=== PATIENT | female | born 1965 | race Caucasian/White ===

== ENCOUNTER 2018-02-08 07:34 | Inpatient (IN) | payer OTHER ==
[2018-02-05 07:55] LABS: BASOPHILS % 0.4 % (0.0-1.0); EOSINOPHILS # (AUTO) 0.1 (0.0-0.4); EOSINOPHILS % 1.7 % (0.0-6.0); HEMATOCRIT 42.5 % (34.2-44.1); HEMOGLOBIN 14.7 g/dL (12.0-16.0); LYMPHOCYTES # (AUTO) 2.6 (1.0-3.2); LYMPHOCYTES % 34.7 % (18.0-39.1); MEAN CORPUSCULAR HEMOGLOBIN 31.5 pg (28-32); MEAN CORPUSCULAR HGB CONC 34.6 g/dL (31-35); MEAN CORPUSCULAR VOLUME 91.2 fL (81-99); MONOCYTES # (AUTO) 0.5 (0.2-0.8); MONOCYTES % 7.3 % (4.4-11.3); NEUTROPHILS # (AUTO) 4.1 (2.1-6.9); NEUTROPHILS % 55.6 % (38.7-80.0); PLATELET COUNT 279 x10e3/uL (140-360); RED BLOOD COUNT 4.66 x10e6/uL (3.6-5.1); RED CELL DISTRIBUTION WIDTH 12.9 % (11.7-14.4)
[2018-02-05 08:45] LABS: ALANINE AMINOTRANSFERASE 32 IU/L (0-55); ALKALINE PHOSPHATASE 100 IU/L (40-150); ANION GAP 15.5 mmol/L (8-16); BLOOD UREA NITROGEN 18 mg/dL (7-26); BUN/CREATININE RATIO 21 (6-25); CALCIUM 10.1 mg/dL (8.4-10.2); CARBON DIOXIDE 25 mmol/L (22-29); CHLORIDE 104 mmol/L (98-107); CREATININE, SERUM 0.86 mg/dL (0.57-1.11); EST GLOMERULAR FILTRATION RATE > 60 ML/MIN (60-); GLUCOSE 110 mg/dL (74-118); POTASSIUM 4.5 mmol/L (3.5-5.1); SODIUM 140 mmol/L (136-145)
[~2018-02-08] VITALS: Ht 177.8 cm; Wt 107.0 kg
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
[2018-02-08] MEDS ORDERED: LIDOCAINE HCL (LTA) 4 ML SOLN ONE (09:40)
[2018-02-08] MEDS ORDERED: FENTANYL CITRATE/PF 100MCG/2 ML INJ ONE (10:02)
[2018-02-08] MEDS ORDERED: MIDAZOLAM HCL 2 MG/2 ML VIAL ONE (10:02)
[2018-02-08] MEDS ORDERED: SCOPOLAMINE 1.5 MG PATCH ONE (10:02)
[2018-02-08] MEDS ORDERED: FAMOTIDINE 20 MG/2 ML VIAL IV ONE (10:03)
[2018-02-08] MEDS ORDERED: BUPIVACAINE 0.25% 30ML SDV INJ ONE (10:06)
[2018-02-08] MEDS ORDERED: CEFAZOLIN SOD 2 GM/D5W 50ML 50 ML IV ONE (10:07)
[2018-02-08] MEDS ORDERED: SUGAMMADEX SODIUM 200 MG/2 ML VIAL IV ONE (11:28)
[2018-02-08] MEDS ORDERED: MORPHINE SULFATE 2 MG/ML SYR IV PRN (11:45)
[2018-02-08] MEDS ORDERED: ONDANSETRON HCL INJ 2 MG/ML VIAL IV PRN (11:45)
[2018-02-08] MEDS ORDERED: METOCLOPRAMIDE HCL 10 MG/2ML VIAL ONE (12:04)
[2018-02-08] MEDS ORDERED: ONDANSETRON HCL INJ 2 MG/ML VIAL ONE ×2 (12:04→16:50)
[2018-02-08] MEDS ORDERED: SCOPOLAMINE 1.5 MG PATCH TOP SCH (14:00)
--- NOTE | 2018-02-08 15:11 | Consultation ---
DATE OF CONSULTATION: February 08, 2018 INTERNAL MEDICINE CONSULTATION REASON FOR CONSULTATION: Medical management. HISTORY OF PRESENT ILLNESS: This is a 52-year-old white woman who underwent elective laparoscopic sleeve gastrectomy today, on February 08, 2018. This woman has a history of obesity with a body mass index of 35 as well as underlying sleep apnea. Patient states that she does not use a CPAP machine at night. Patient voices no complaints. Patient tolerated the surgery quite well. REVIEW OF SYSTEMS GENERAL: Patient has lost 10 to 15 pounds over the last month intentionally. No fever or chills. HEENT: No headaches. No visual changes. CARDIOVASCULAR/RESPIRATORY: No chest pain, no shortness of breath, no cough. GI: No nausea, vomiting, diarrhea or constipation. : No overactive bladder or UTI symptoms. NEUROMUSCULAR: Denies any limb weakness or numbness. PAST MEDICAL HISTORY 1. Mitral valve prolapse diagnosed at age 22. 2. Obstructive sleep apnea. 3. Obesity with BMI of 35. SURGICAL HISTORY: Total abdominal hysterectomy with bilateral salpingo-oophorectomy in 2007. FAMILY HISTORY: Noncontributory. SOCIAL HISTORY: This woman is . She lives with her . She is self-employed, and she raises and breeds large canines. She drinks alcohol socially. No tobacco use. ALLERGIES: SHE HAS NO KNOWN DRUG ALLERGIES. MEDICATIONS: None. PHYSICAL EXAMINATION GENERAL: She is awake, alert and fully oriented. Very pleasant and cooperative with exam. VITAL SIGNS: Blood pressure is 122/84, pulse of 82 and is regular, oxygen saturation 98% on room air, temperature 98.0, respiratory rate is 16. Height is 5 feet 10-1/2 inches. Weight is 250 pounds. BMI is 35. INTEGUMENT: Skin is warm and dry. No pallor, jaundice, diaphoresis. HEENT: Anicteric sclerae with moist mucous membranes. NECK: Supple. CARDIOVASCULAR: Regular rate and rhythm. LUNGS: No rales, no rhonchi, no wheezes. ABDOMEN: Benign. No bowel sounds are appreciated at this time. Laparoscopic incisions are currently dressed. EXTREMITIES: No edema or deformity. The patient has sequential compression devices in place. NEUROLOGICALLY: Intact. DIAGNOSES 1. Status post laparoscopic sleeve gastrectomy. 2. Obesity with body mass index of 35. 3. Obstructive sleep apnea. 4. Mitral valve prolapse. PLAN 1. Will follow hemoglobin and hematocrit as well as electrolytes. 2. Will follow renal function. 3. Encourage incentive spirometry usage to prevent atelectasis. 4. Mobilize the patient. 5. Will start enoxaparin tonight for deep venous thrombosis prophylaxis. 6. Continue sequential compression devices. 7. Pain control. I spent 40 minutes in the care of this patient. I would like to thank Dr. Doll for this generous consult. Job#: [id number] EV
--- NOTE | 2018-02-08 15:37 | Operative Report ---
DATE OF PROCEDURE: February 08, 2018 PREOPERATIVE DIAGNOSES 1. Morbid obesity, body mass index of 35. 2. Diabetes mellitus. POSTOPERATIVE DIAGNOSES 1. Morbid obesity, body mass index of 35. 2. Diabetes mellitus. PREOPERATIVE INDICATIONS: Treat disease, prevent complications related to comorbid conditions of obesity. PROCEDURE: Laparoscopic vertical sleeve gastrectomy. ANESTHESIA: General. FIELD SERVICE TECH: Kai Hernandez, surgical retail loan originator assistant (mainly due to complexity of case). FLUIDS: 1400 cc crystalloid. EBL: 25 mL. DRAINS: None. COMPLICATIONS: None. SPECIMENS: Partial stomach (opened at the back table, not sent to pathology). GRAFTS: None. FINDINGS 1. Normal upper GI anatomy. 2. Negative intraoperative EGD leak test. PROCEDURAL DETAILS: The patient was brought to the operating room and was intubated under general endotracheal anesthesia. She was positioned supine with both arms abducted, and all pressure points appropriately padded. She was sterilely prepped and draped in the usual fashion. A preprocedure pause was performed identifying the patient and received preoperative antibiotics, intended procedure, and the staff surgeon. A primary 5 mm left subcostal incision was made, and a Veress needle was inserted and insufflated the abdomen to a pressure of 15 mmHg of pressure. A 0-degree, 5-mm Optiview trocar was placed under direct visualization. No injuries were noted. Four additional trocars were placed in the standard position. A liver retractor was placed to expose the stomach and the hiatus. I then mobilized the greater curvature of the stomach by ligating the gastroepiploica, short gastric and posterior short gastric vessels all up to the left crux of the diaphragm and distally to about 4 cm proximal to the pyloric valve. Once this was complete, an adult size endoscope was placed along the lesser curvature of the stomach to be used as a bougie. I formulated our gastric sleeve by resecting the greater curvature of the stomach along the length of the bougie by using first 2 green load staplers, Ethicon, with seam guard, and then 3 blue loads with seam guard at the proximal stomach. The staple line was hemostatic. Hemoclips were applied where necessary. I conducted an intraoperative EGD leak test, and no leaks were identified. The resected portion of the stomach was removed through the right periumbilical port site. I closed the port site with 0 Vicryl sutures using the Heath-Za technique. Hemostasis was again verified. The liver retractor was removed. We then desufflated the abdomen and removed the trocars. We closed the incision site with 4-0 Monocryl suture in a subcuticular fashion, and applied 0.25% bupivacaine about the preperitoneal incision sites. The patient tolerated the procedure well. TYPE OF WOUND: Type 2, clean and contaminated. All surgical sponge and instrument counts were correct. Job#: [id number] AR
[2018-02-08] MEDS ORDERED: DEXAMETHASONE SOD PHOS INJ 4 MG/ML VIAL ONE (16:50)
[2018-02-08] MEDS ORDERED: ACETAMINOPHEN 1000 MG/100 ML IV ONE (16:50)
[2018-02-08] MEDS ORDERED: ROCURONIUM BROMIDE 10 MG/ML 5ML VIAL ONE (16:50)
[2018-02-08] MEDS ORDERED: SEVOFLURANE INHAL SOLN 250 ML PEN BTL ONE (16:50)
[2018-02-08] MEDS ORDERED: PROPOFOL IV EMULSION 10 MG/ML 20 ML VIAL ONE (16:50)
[2018-02-08] MEDS ORDERED: LIDOCAINE HCL 2% LOCAL INJ 5 ML SDV VIAL INJ ONE (16:50)
[2018-02-08 17:30] VITALS: BP 105/77
[2018-02-08 17:33] VITALS: BP 106/68
[2018-02-08] MEDS: SODIUM CHLORIDE 0.9% 1000ML 1,000 ML IV SCH ×2 (17:39→20:29)
[2018-02-08 20:00] VITALS: BP 105/67
[2018-02-08] MEDS: ENOXAPARIN SOD INJ 40 MG/0.4 ML SYR SC SCH (20:02)
[2018-02-08] MEDS: ACETAMINOPHEN 1000 MG/100 ML IV PRN (20:29)
[2018-02-09] VITALS: BP 100/62
[2018-02-09 04:00] VITALS: BP 109/57
[2018-02-09] MEDS: SODIUM CHLORIDE 0.9% 1000ML 1,000 ML IV SCH ×2 (04:53→11:31)
[2018-02-09] MEDS: ACETAMINOPHEN 1000 MG/100 ML IV PRN (05:02)
[2018-02-09 05:46] LABS: BASOPHILS % 0.2 % (0.0-1.0); EOSINOPHILS % 0.1 % (0.0-6.0); HEMATOCRIT 36.3 % (34.2-44.1); HEMOGLOBIN 12.5 g/dL (12.0-16.0); LYMPHOCYTES # (AUTO) 2.8 (1.0-3.2); MEAN CORPUSCULAR HEMOGLOBIN 31.2 pg (28-32); MEAN CORPUSCULAR HGB CONC 34.4 g/dL (31-35); MEAN CORPUSCULAR VOLUME 90.5 fL (81-99); MONOCYTES # (AUTO) 0.6 (0.2-0.8); MONOCYTES % 5.5 % (4.4-11.3); NEUTROPHILS # (AUTO) 8.1 (2.1-6.9); NEUTROPHILS % 69.8 % (38.7-80.0); PLATELET COUNT 227 x10e3/uL (140-360); RED BLOOD COUNT 4.01 x10e6/uL (3.6-5.1); RED CELL DISTRIBUTION WIDTH 12.9 % (11.7-14.4)
[2018-02-09 06:16] LABS: ALANINE AMINOTRANSFERASE 25 IU/L (0-55); ALBUMIN 3.1 g/dL (3.5-5.0); ALBUMIN/GLOBULIN RATIO 1.2 (0.8-2.0); ALKALINE PHOSPHATASE 86 IU/L (40-150); ANION GAP 12.8 mmol/L (8-16); BLOOD UREA NITROGEN 9 mg/dL (7-26); BUN/CREATININE RATIO 13 (6-25); CALCIUM 7.9 mg/dL (8.4-10.2); CARBON DIOXIDE 20 mmol/L (22-29); CHLORIDE 107 mmol/L (98-107); CREATININE, SERUM 0.69 mg/dL (0.57-1.11); EST GLOMERULAR FILTRATION RATE > 60 ML/MIN (60-); GLUCOSE 87 mg/dL (74-118); MAGNESIUM 1.7 MG/DL (1.3-2.1); PHOSPHORUS 2.7 MG/DL (2.3-4.7); POTASSIUM 3.8 mmol/L (3.5-5.1); SODIUM 136 mmol/L (136-145)
[2018-02-09] MEDS ORDERED: HYDROCODONE/APAP 7.5MG-325MG 1 EA TAB PO PRN (07:00)
[2018-02-09 08:00] VITALS: BP 97/64
[2018-02-09] MEDS: ENOXAPARIN SOD INJ 40 MG/0.4 ML SYR SC SCH (08:27)
[2018-02-09] MEDS ORDERED: ENOXAPARIN SOD INJ 40 MG/0.4 ML SYR SC SCH (09:00)
--- NOTE | 2018-02-09 10:15 | Discharge Summary ---
ADMITTING DIAGNOSES 1. Obesity with body mass index of 35 complicating underlying prediabetes and obstructive sleep apnea. 2. Obstructive sleep apnea. 3. Prediabetes. DISCHARGE DIAGNOSES 1. Status post laparoscopic vertical sleeve gastrectomy. 2. Obesity with body mass index of 35 complicating obstructive sleep apnea and prediabetes. HOSPITAL COURSE: This is a 52-year-old white woman who was admitted to [facility] with diagnosis of obesity complicating underlying prediabetes and obstructive sleep apnea. The patient underwent elective laparoscopic vertical sleeve gastrectomy, which was performed by her bariatric surgeon, namely Dr. Amando Doll. The patient's brief hospitalization was unremarkable. The patient's condition on discharge was stable. On the day of discharge, the patient's hemoglobin was 12.5 g/dL. The patient's BUN and creatinine on discharge were 9 and 0.67 respectively, but her serum bicarbonate was low at 20. CONDITION ON DISCHARGE: Stable. The patient is tolerating a clear liquid diet on discharge. HOME MEDICATIONS: [place] 7.5 per 325 one every 4 hours p.r.n. pain, 25 prescribed, no refills. FOLLOWUP INSTRUCTIONS: The patient was instructed to follow up with Dr. Amando Doll within 1 week. The patient was instructed to avoid all NSAIDs until further notice. JUAN LUIS PASTOR MD Job#: [id number] cc:AMANDO DOLL MD
[2018-02-09 10:33] VITALS: BP 97/64
[2018-02-09] MEDS ORDERED: NORCO 7.5-3251 EACH PO (11:24)
[2018-02-09 11:58] VITALS: BP 125/68
== END 2018-02-09 13:12 | disposition home or self-care (01) | DRG 621 ==
LOC: OR 07:34 → PACU V 16:23 → MED/SURG 17:22
PROVIDERS: ADMIT Surgery; ATTEND Surgery
PROC: 0DB64Z3 Excision of Stomach, Percutaneous Endoscopic Approach, Vertical (ICD-10-PCS; principal; 2018-02-08 10:00)
DX: E66.01 Morbid (severe) obesity due to excess calories (principal); R73.03 Prediabetes; G47.33 Obstructive sleep apnea (adult) (pediatric); Z68.35 Body mass index [BMI] 35.0-35.9, adult; I34.1 Nonrheumatic mitral (valve) prolapse
CPT/HCPCS: 36415; 80053; 82306; 83735; 84100; 85025; 86850; 86900; 93005; J0690; J1100; J1650; J2001; J2250; J2405; J2765; J7030